=== PATIENT | female | born 1990 | race Caucasian/White ===

== ENCOUNTER 2017-03-19 21:19 | Emergency (ER) | payer OTHER ==
[2017-03-19 21:20] VITALS: BMI 28.1
[2017-03-19 21:49] VITALS: BP 114/72; PULSE 75; RESP 20; TEMP 98; O2SAT 95
[2017-03-19] MEDS ORDERED: guaiFENesin 200 mg/10 ml Syrup UD PO ONE (22:58)
[2017-03-19] MEDS ORDERED: Albuterol-Ipratrop 3 mg / 0.5 (3 ml) UD IH STA (22:58)
--- NOTE | 2017-03-19 23:10 | ED PDOC ---
Arrival/HPI - General Chief Complaint: Cough, Cold, Congestion Time Seen by Provider: 03/19/17 22:39 Historian: Patient - History of Present Illness Narrative History of Present Illness (Text): 03/19/17 23:00 Ximena Birmingham is a 27 year old female who presents to the emergency department for evaluation of 1 week duration of non-productive cough. Denies any fever, chills , chest pain, shortness of breath, abdominal pain, nausea, vomiting, diarrhea, urinary symptoms, or any other complaints at this time. Time/Duration: 1 week Symptom Onset: Gradual Symptom Course: Unchanged Severity Level: Mild Past Medical History - Provider Review Nursing Documentation Reviewed: Yes - Past History Past History: No Previous - Infectious Disease Hx of Infectious Diseases: None - Past Medical History Past Medical History: No Previous - Psychiatric Hx Anxiety: Yes Hx Depression: No Hx Emotional Abuse: No Hx Physical Abuse: No Hx Substance Use: No - Surgical History Hx Orthopedic Surgery: Yes (R HIP) - Anesthesia Hx Anesthesia: Yes Hx Anesthesia Reactions: No Hx Malignant Hyperthermia: No - Suicidal Assessment Feels Threatened In Home Enviroment: No Family/Social History - Physician Review Nursing Documentation Reviewed: Yes Family/Social History: No Known Family HX Smoking Status: Heavy Smoker > 10 Cigarettes Daily Hx Alcohol Use: Yes Frequency of alcohol use: Socially Hx Substance Use: No Allergies/Home Meds Allergies/Adverse Reactions: Allergies No Known Allergies Allergy (Verified 12/24/13 11:56) Home Medications: Home Meds Medication Instructions Recorded Confirmed Promethazine [Phenergan Syrup] 1 tsp PO QID 03/19/17 03/19/17 Review of Systems - Physician Review All systems were reviewed & negative as marked: Yes - Review of Systems Constitutional: Normal. absent: Fatigue, Fevers Respiratory: Cough. absent: SOB, Sputum Cardiovascular: Normal. absent: Chest Pain, Palpitations Gastrointestinal: Normal. absent: Abdominal Pain, Diarrhea, Nausea, Vomiting Neurological: Normal. absent: Headache, Dizziness Physical Exam Vital Signs Reviewed: Yes Vital Signs Temp Pulse Resp BP Pulse Ox 03/19/17 21:48 98.0 F 75 20 114/72 95 Temperature: Afebrile Blood Pressure: Normal Pulse: Regular Respiratory Rate: Normal Appearance: Positive for: Well-Appearing, Non-Toxic, Comfortable Pain Distress: None Mental Status: Positive for: Alert and Oriented X 3 - Systems Exam Head: Present: Atraumatic, Normocephalic Pupils: Present: PERRL Extroacular Muscles: Present: EOMI Conjunctiva: Present: Normal Mouth: Present: Moist Mucous Membranes Neck: Present: Normal Range of Motion Respiratory/Chest: Present: Clear to Auscultation, Good Air Exchange. No: Respiratory Distress, Accessory Muscle Use Cardiovascular: Present: Regular Rate and Rhythm, Normal S1, S2. No: Murmurs Abdomen: Present: Normal Bowel Sounds. No: Tenderness, Distention, Peritoneal Signs Back: Present: Normal Inspection Upper Extremity: Present: Normal Inspection. No: Cyanosis, Edema Lower Extremity: Present: Normal Inspection. No: Edema Neurological: Present: GCS=15, CN II-XII Intact, Speech Normal Skin: Present: Warm, Dry, Normal Color. No: Rashes Psychiatric: Present: Alert, Oriented x 3, Normal Insight, Normal Concentration Medical Decision Making ED Course and Treatment: 03/19/17 23:00 Impression: A 27 year old female who presents to the emergency department complaining of 1 week duration of nonproductive cough. Differential diagnosis : bronchitis, consider URI and pneumonia Plan: -- Robitussin -- Duoneb -- Reassess and disposition Progress Notes: On reevaluation patient reports significant improvement of her cough at this time. On exam she is sitting comfortably in bed in no acute distress, speaking in full sentences and in no respiratory distress. Patient advised of likely diagnosis of bronchitis and given a prescription for guaifenesin, Ventolin pump and albuterol nebulizer and advised to take medications as prescribed for her cough. Otherwise advised to follow up with her PMD in 1-2 days without fail. Advised to take medication as prescribed. Return to the emergency room at any time for any new or worsening symptoms. Patient states she fully agrees with and understands discharge instructions. States that she agrees with the plan and disposition. Verbalized and repeated discharge instructions and plan. I have given the patient opportunity to ask any additional questions. - Medication Orders Current Medication Orders: Discontinued Medications Albuterol/Ipratropium (Duoneb 3 Mg/0.5 Mg (3 Ml) Ud) 3 ml IH STAT STA Stop: 03/19/17 22:59 Last Admin: 03/19/17 23:51 Dose: 3 ml Guaifenesin (Robitussin) 400 mg PO ONCE ONE Stop: 03/19/17 22:59 Last Admin: 03/19/17 23:49 Dose: 400 mg Disposition/Present on Arrival - Present on Arrival Any Indicators Present on Arrival: No History of DVT/PE: No History of Uncontrolled Diabetes: No Urinary Catheter: No History of Decub. Ulcer: No History Surgical Site Infection Following: None - Disposition Have Diagnosis and Disposition been Completed?: Yes Diagnosis: Bronchitis Disposition: HOME/ ROUTINE Disposition Time: 23:30 Patient Plan: Discharge Condition: STABLE Discharge Instructions (ExitCare): Acute Bronchitis (ED) Print Language: [id number] Additional Instructions: Thank you for letting us take care of you today. You were treated for bronchitis. The emergency medical care you received today was directed at your acute symptoms. If you were prescribed any medication, please fill it and take as directed. It may take several days for your symptoms to resolve. Return to the Emergency Department if your symptoms worsen, do not improve, or if you have any other problems. Please contact your doctor in 2 days for re-evaluation and follow up. Bring any paperwork you were given at discharge with you along with any medications you are taking to your follow up visit. Our treatment cannot replace ongoing medical care by a primary care provider (PCP) outside of the emergency department. Thank you for allowing the [facility] team to be part of your care today. Prescriptions: Albuterol HFA [Ventolin HFA 90 mcg/actuation (8 g)] 2 puff IH [id number] #1 puff Albuterol 0.083% [Albuterol Sulfate 3 Ml] 3 ml IH Q4 #100 neb Guaifenesin 400 mg PO QID #20 tablet Nebulizer [Aeroneb Go Nebulizer] 1 each MC PRN PRN #1 each PRN Reason: Cough Forms: [employer] (Fijian), WORK NOTE
== END 2017-03-20 | disposition home or self-care (01) ==
LOC: ED 21:19
DX: J20.9 Acute bronchitis, unspecified (principal); F17.210 Nicotine dependence, cigarettes, uncomplicated

== ENCOUNTER 2017-03-23 02:26 | Emergency (ER) | payer OTHER ==
[2017-03-23 02:58] VITALS: BMI 29.0
[2017-03-23 03:02] VITALS: TEMP 98.5
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
[2017-03-23 05:35] VITALS: BP 100/66; PULSE 75; RESP 18; O2SAT 99
== END 2017-03-23 05:05 | disposition home or self-care (01) ==
LOC: ED 02:26
DX: S16.1XXA Strain of muscle, fascia and tendon at neck level, initial encounter (principal); V49.9XXA Car occupant (driver) (passenger) injured in unspecified traffic accident, initial encounter
CPT/HCPCS: 96372; 99285; J1885

== ENCOUNTER 2018-01-11 06:57 | Emergency (ER) | payer OTHER ==
[2018-01-11 06:57] VITALS: BMI 29.0
[2018-01-11 07:20] VITALS: RESP 18; O2SAT 100
[2018-01-11] MEDS ORDERED: Apap-Butalbital-Caffeine 325-50-40mg Tab PO ONE (08:00)
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
[2018-01-11 08:18] LABS: URINE BILIRUBIN NEGATIVE (NEGATIVE); URINE BLOOD TRACE-INTACT (NEGATIVE); URINE GLUCOSE (UA) NEGATIVE (NEGATIVE); URINE LEUKOCYTE ESTERASE TRACE Leu/uL (NEGATIVE); URINE PROTEIN TRACE mg/dL (<30 mg/dL); URINE UROBILINOGEN 0.2 E.U./dL (<1 E.U./dL)
[2018-01-11 08:22] LABS: URINE APPEARANCE SL CLOUDY (CLEAR); URINE COLOR LIGHT YELLOW (YELLOW)
[2018-01-11 08:31] LABS: URINE BACTERIA FEW (NEG); URINE RBC 0 - 2 /hpf (0-2)
[2018-01-11 09:48] VITALS: BP 123/78; PULSE 72; TEMP 98.4
== END 2018-01-11 09:32 | disposition home or self-care (01) ==
LOC: ED 06:57
DX: R51 Headache (principal); R45.89 Other symptoms and signs involving emotional state

== ENCOUNTER 2018-02-03 04:17 | Emergency (ER) | payer OTHER ==
[2018-02-03 04:29] VITALS: BMI 26.9
--- NOTE | 2018-02-03 04:34 | ED PDOC ---
Arrival/HPI - General Time Seen by Provider: 02/03/18 04:22 Historian: Patient - History of Present Illness Narrative History of Present Illness (Text): 02/03/18 04:31 Ximena Birmingham is a 27 year old female, whose past medical history includes anxiety and PCOS, who presents to the Emergency department complaining of shortness of breath. Patient states she has been experiencing a migraine throughout the day and tonight while lying down at home she felt short of breath. Patient notes she has been anxious recently due to stress. Patient denies any fever, chills, chest pain, nausea, vomiting, diarrhea, urinary symptoms, back pain, neck pain, headache, dizziness, or any other complaints. Time/Duration: Other (tonight) Symptom Onset: Gradual Symptom Course: Unchanged Activities at Onset: Light Context: Home Past Medical History - Provider Review Nursing Documentation Reviewed: Yes - Past History Past History: No Previous - Infectious Disease Hx of Infectious Diseases: None - Past Medical History Past Medical History: No Previous - Cardiac Hx Cardiac Disorders: No - Pulmonary Hx Bronchitis: Yes - Neurological Hx Neurological Disorder: No - HEENT Hx HEENT Disorder: No - Renal Hx Renal Disorder: No - Endocrine/Metabolic Hx Endocrine Disorders: No - Hematological/Oncological Hx Blood Disorders: No - Integumentary Hx Dermatological Disorder: No - Musculoskeletal/Rheumatological Hx Musculoskeletal Disorders: No - Gastrointestinal Hx Gastrointestinal Disorders: No - Genitourinary/Gynecological Hx Genitourinary Disorders: No Other/Comment: Polycystic ovary disease - Psychiatric Hx Anxiety: Yes Hx Depression: No Hx Emotional Abuse: No Hx Physical Abuse: No Hx Substance Use: No - Surgical History Hx Orthopedic Surgery: Yes (R HIP) - Anesthesia Hx Anesthesia: Yes Hx Anesthesia Reactions: No Hx Malignant Hyperthermia: No - Suicidal Assessment Feels Threatened In Home Enviroment: No Family/Social History - Physician Review Nursing Documentation Reviewed: Yes Family/Social History: Unknown Family HX Smoking Status: Heavy Smoker > 10 Cigarettes Daily Hx Alcohol Use: Yes Hx Substance Use: No Allergies/Home Meds Allergies/Adverse Reactions: Allergies No Known Allergies Allergy (Verified 02/03/18 04:27) Home Medications: Home Meds Medication Instructions Recorded Confirmed No Known Home Med 02/03/18 02/03/18 Review of Systems - Physician Review All systems were reviewed & negative as marked: Yes - Review of Systems Constitutional: Normal. absent: Fevers Eyes: Normal ENT: Normal Respiratory: SOB Cardiovascular: Normal. absent: Chest Pain Gastrointestinal: Normal. absent: Abdominal Pain, Diarrhea, Nausea, Vomiting Genitourinary Female: Normal. absent: Dysuria, Frequency, Hematuria Musculoskeletal: Normal. absent: Back Pain, Neck Pain Skin: Normal. absent: Rash Neurological: Headache Endocrine: Normal Hemo/Lymphatic: Normal Psychiatric: Anxiety Physical Exam Vital Signs Reviewed: Yes Vital Signs Temp Pulse Resp Pulse Ox 02/03/18 04:29 97.6 F 61 19 100 Temperature: Afebrile Blood Pressure: Normal Pulse: Regular Respiratory Rate: Normal Appearance: Positive for: Well-Appearing, Non-Toxic, Comfortable Pain Distress: None Mental Status: Positive for: Alert and Oriented X 3 - Systems Exam Head: Present: Atraumatic, Normocephalic Pupils: Present: PERRL Extroacular Muscles: Present: EOMI Conjunctiva: Present: Normal Mouth: Present: Moist Mucous Membranes Neck: Present: Normal Range of Motion Respiratory/Chest: Present: Clear to Auscultation, Good Air Exchange. No: Respiratory Distress, Accessory Muscle Use Cardiovascular: Present: Regular Rate and Rhythm, Normal S1, S2. No: Murmurs Abdomen: No: Tenderness, Distention, Peritoneal Signs Back: Present: Normal Inspection Upper Extremity: Present: Normal Inspection. No: Cyanosis, Edema Lower Extremity: Present: Normal Inspection. No: Edema Neurological: Present: GCS=15, CN II-XII Intact, Speech Normal Skin: Present: Warm, Dry, Normal Color. No: Rashes Psychiatric: Present: Alert, Oriented x 3, Normal Insight, Normal Concentration , Anxious (anxious-appearing) Medical Decision Making ED Course and Treatment: 02/03/18 04:31 Impression: 27 year old female complaining of shortness of breath, headache, and anxiety. Plan: -- EKG -- Chest X-ray -- Labs -- Xanax -- Reassess and disposition Prior Visits: Notes and results from previous visits were reviewed. On 01/11/2018, pt was seen in the Emergency department for light-headedness, headache, and anxiety. Pt was d/c home. Progress Notes: Reviewed EKG, sinus bradycardia at 58 bpm. Sinus arrhythmia. No acute changes. 02/03/18 05:59 Chest X-ray reviewed, shows no acute processes. 02/03/18 07:11 Case endorsed to pending D-Dimer/reassess/final disposition - Lab Interpretations Lab Results: 02/03/18 06:00 02/03/18 06:00 Lab Results 02/03/18 06:00: WBC 10.4, RBC 4.11, Hgb 11.8 L, Hct 35.4 L, MCV 86.1, MCH 28.7, MCHC 33.3, RDW 13.9, Plt Count 294, MPV 8.7 02/03/18 06:00: Sodium 142, Potassium 3.7, Chloride 103, Carbon Dioxide 27, Anion Gap 15, BUN 13, Creatinine 0.8, Est GFR ( Amer) > 60, Est GFR (Non- Af Amer) > 60, Random Glucose 114 H, Calcium 8.6, Total Bilirubin 0.2, AST 31, ALT 26, Alkaline Phosphatase 92, Lactate Dehydrogenase 411, Total Creatine Kinase 46, Troponin I < 0.01, Total Protein 7.6, Albumin 4.1, Globulin 3.4, Albumin/Globulin Ratio 1.2 - RAD Interpretation Radiology Orders: 02/03/18 04:31 CHEST PORTABLE [RAD] Stat Rock Dust Sprayer: ED Physician - EKG Interpretation Interpreted by ED Physician: Yes Type: 12 lead EKG - Medication Orders Current Medication Orders: Discontinued Medications Alprazolam (Xanax) 0.25 mg PO ONCE ONE Stop: 02/03/18 04:33 Last Admin: 02/03/18 04:52 Dose: 0.25 mg - Scribe Statement The provider has reviewed the documentation as recorded by the Taylor Velazquez Provider Scribe Attestation: All medical record entries made by the Taylor were at my direction and personally dictated by me. I have reviewed the chart and agree that the record accurately reflects my personal performance of the history, physical exam, medical decision making, and the department course for this patient. I have also personally directed, reviewed, and agree with the discharge instructions and disposition. Disposition/Present on Arrival - Present on Arrival Any Indicators Present on Arrival: No History of DVT/PE: No History of Uncontrolled Diabetes: No Urinary Catheter: No History of Decub. Ulcer: No History Surgical Site Infection Following: None - Disposition Have Diagnosis and Disposition been Completed?: No Diagnosis: Anxiety Disposition Time: 07:09 Patient Problems: Current Active Problems Problem Status Onset Anxiety Acute Condition: STABLE Referrals: Warren Cason JD, MD [Primary Care Provider] - Follow up with primary
[2018-02-03 06:20] LABS: HEMOGLOBIN 11.8 g/dL (12.0-16.0); MEAN CELL VOLUME 86.1 fl (80.0-105.0); MEAN CORPUSCULAR HEMOGLOBIN 28.7 pg (25.0-35.0); MEAN CORPUSCULAR HGB CONC 33.3 g/dl (31.0-37.0); MEAN PLATELET VOLUME 8.7 fl (7.0-11.0); RBC 4.11 10^6/uL (3.5-6.1); RED CELL DISTRIBUTION WIDTH 13.9 % (11.5-14.5); WHITE BLOOD COUNT 10.4 10^3/ul (4.5-11.0)
[2018-02-03 06:24] LABS: ALB/GLOB RATIO 1.2 (1.1-1.8); ALBUMIN 4.1 g/dL (3.0-4.8); ALT/SGPT 26 U/L (7-56); AST/SGOT 31 U/L (14-36); BLOOD UREA NITROGEN 13 mg/dL (7-21); CALCIUM 8.6 mg/dL (8.4-10.5); GFR AFRICAN-AMERICAN > 60; GFR NON-AFRICAN AMERICAN > 60
[2018-02-03 06:35] LABS: TROPONIN I < 0.01 ng/mL
[2018-02-03 07:31] VITALS: BP 94/57; TEMP 97.7; O2SAT 95
--- NOTE | 2018-02-03 07:35 | ED PDOC ---
Physical Exam Vital Signs Temp Pulse Resp BP Pulse Ox 02/03/18 07:31 97.7 F 53 L 19 94/57 L 95 02/03/18 04:29 97.6 F 61 19 100 02/03/18 04:18 18 Medical Decision Making ED Course and Treatment: 02/03/18 07:32 Patient signed out to me by Dr. Dupont, pending follow up D-Dimer results for disposition. 02/03/18 07:55 Patient is feeling much better. Headache improved. No longer having shortness of breathe. Lungs clear. She will f/u with her PMD in 1-2 days. Advised to return to the ED if symptoms worsen or any other concern - Lab Interpretations Lab Results: 02/03/18 06:00 02/03/18 06:00 Lab Results 02/03/18 07:00: D-Dimer, Quantitative < 200 02/03/18 06:00: WBC 10.4, RBC 4.11, Hgb 11.8 L, Hct 35.4 L, MCV 86.1, MCH 28.7, MCHC 33.3, RDW 13.9, Plt Count 294, MPV 8.7 02/03/18 06:00: Sodium 142, Potassium 3.7, Chloride 103, Carbon Dioxide 27, Anion Gap 15, BUN 13, Creatinine 0.8, Est GFR ( Amer) > 60, Est GFR (Non- Af Amer) > 60, Random Glucose 114 H, Calcium 8.6, Total Bilirubin 0.2, AST 31, ALT 26, Alkaline Phosphatase 92, Lactate Dehydrogenase 411, Total Creatine Kinase 46, Troponin I < 0.01, Total Protein 7.6, Albumin 4.1, Globulin 3.4, Albumin/Globulin Ratio 1.2 - RAD Interpretation Radiology Orders: 02/03/18 04:31 CHEST PORTABLE [RAD] Stat - Medication Orders Current Medication Orders: Discontinued Medications Alprazolam (Xanax) 0.25 mg PO ONCE ONE Stop: 02/03/18 04:33 Last Admin: 02/03/18 04:52 Dose: 0.25 mg Ketorolac Tromethamine (Toradol) 30 mg IVP STAT STA Stop: 02/03/18 07:34 - Scribe Statement The provider has reviewed the documentation as recorded by the [employer] All medical record entries made by the Scribe were at my direction and personally dictated by me. I have reviewed the chart and agree that the record accurately reflects my personal performance of the history, physical exam, medical decision making, and the department course for this patient. I have also personally directed, reviewed, and agree with the discharge instructions and disposition. ' Disposition/Present on Arrival - Present on Arrival Any Indicators Present on Arrival: No History of DVT/PE: No History of Uncontrolled Diabetes: No Urinary Catheter: No History of Decub. Ulcer: No History Surgical Site Infection Following: None - Disposition Have Diagnosis and Disposition been Completed?: Yes Diagnosis: Anxiety, Headache Disposition: HOME/ ROUTINE Disposition Time: 07:55 Patient Plan: Discharge Condition: STABLE Discharge Instructions (ExitCare): Migraine Headache (DC), Anxiety, Adult (DC) Additional Instructions: MILAGROS MORRIS, thank you for letting us take care of you today. Your provider was Son Lna DO and you were treated for Shortness of Breathe, Headache. The emergency medical care you received today was directed at your acute symptoms. If you were prescribed any medication, please fill it and take as directed. It may take several days for your symptoms to resolve. Return to the Emergency Department if your symptoms worsen, do not improve, or if you have any other problems. Please contact your doctor or call one of the physicians/clinics you have been referred to that are listed on the Patient Visit Information form that is included in your discharge packet. Bring any paperwork you were given at discharge with you along with any medications you are taking to your follow up visit. Our treatment cannot replace ongoing medical care by a primary care provider outside of the emergency department. Thank you for allowing the [facility] team to be part of your care today. If you had an X-Ray or CT scan: A Radiologist will review the ED reading if any change in treatment is needed we will contact you. If you had a blood, urine, or wound culture: It will take several days for the results, if any change in treatment is needed we will contact you. If you had an STI test: It will take 48 hours for the results. Please call after 1 week if you have not heard back. Referrals: Warren Cason JD, MD [Primary Care Provider] - Follow up with primary Forms: WORK NOTE
[2018-02-03 07:56] VITALS: PULSE 54; RESP 17
--- NOTE | 2018-02-03 09:23 | RAD ---
HISTORY: sob COMPARISON: No prior. FINDINGS: LUNGS: No active pulmonary disease. PLEURA: No significant pleural effusion identified, no pneumothorax apparent. CARDIOVASCULAR: Normal. OSSEOUS STRUCTURES: No significant abnormalities. VISUALIZED UPPER ABDOMEN: Normal. OTHER FINDINGS: None. IMPRESSION: No active disease.
--- NOTE | 2018-02-03 17:14 | CARD ---
APPROVED REPORT EKG Measurement Heart [id number] <Conclusion> Sinus bradycardia with sinus arrhythmia Otherwise normal ECG
== END 2018-02-03 07:55 | disposition home or self-care (01) ==
LOC: ED 04:17
DX: F41.9 Anxiety disorder, unspecified (principal); R51 Headache
CPT/HCPCS: 71045; 80053; 82550; 83615; 84484; 85027; 85378; 93005; 96374; 99283; J1885

== ENCOUNTER 2018-05-04 04:42 | Emergency (ER) | payer MEDICAID, OTHER ==
[2018-05-04 05:15] VITALS: BMI 26.6
[2018-05-04 05:19] VITALS: TEMP 98.1
[2018-05-04] MEDS ORDERED: Amoxicillin-Clav 875-125 mg Tab PO STA (05:38)
--- NOTE | 2018-05-04 05:40 | ED PDOC ---
Arrival/HPI <Saad Ramírez - Last Filed: 05/04/18 06:00> - General Historian: Patient - History of Present Illness Time/Duration: 24 hours Symptom Onset: Gradual Symptom Course: Unchanged Quality: Burning Severity Level: 5 Activities at Onset: Rest Context: Home <Elvin Ramos - Last Filed: 05/04/18 06:44> - General Chief Complaint: Abnormal Skin Integrity Time Seen by Provider: 05/04/18 05:17 - History of Present Illness Narrative History of Present Illness (Text): 05/04/18 05:36 CC: Stray cat bite HPI: Ms. Morris is a 28 year old female heavy smoker who presents with a bite from a stray cat patient picked up from the street. Patient reports she was giving the cat a bath at 7 pm when patient was bit in left interdigital fold between first and second digits last night. Skin has become slightly red and swollen, and patient reports occasional feelings of full-body warmth since then. Reports new headache but Denies fevers chills, chest pain, shortness of breath, abdominal pain. (Elvin Ramos) Past Medical History - Provider Review Nursing Documentation Reviewed: Yes - Travel History Have you recently traveled outside [place] w/in the past 3 mons?: No - Past History Past History: No Previous - Infectious Disease Hx of Infectious Diseases: None - Past Medical History Past Medical History: No Previous - Cardiac Hx Cardiac Disorders: No - Pulmonary Hx Bronchitis: Yes - Neurological Hx Neurological Disorder: No - HEENT Hx HEENT Disorder: No - Renal Hx Renal Disorder: No - Endocrine/Metabolic Hx Endocrine Disorders: No - Hematological/Oncological Hx Blood Disorders: No - Integumentary Hx Dermatological Disorder: No - Musculoskeletal/Rheumatological Hx Musculoskeletal Disorders: No - Gastrointestinal Hx Gastrointestinal Disorders: No - Genitourinary/Gynecological Hx Genitourinary Disorders: No Other/Comment: Polycystic ovary disease - Psychiatric Hx Anxiety: Yes Hx Depression: No Hx Emotional Abuse: No Hx Physical Abuse: No Hx Substance Use: No - Surgical History Hx Orthopedic Surgery: Yes (R HIP) - Anesthesia Hx Anesthesia: Yes Hx Anesthesia Reactions: No Hx Malignant Hyperthermia: No - Suicidal Assessment Feels Threatened In Home Enviroment: No <Elvin Ramos - Last Filed: 05/04/18 06:44> Family/Social History - Physician Review Nursing Documentation Reviewed: Yes Family/Social History: Unknown Family HX Smoking Status: Heavy Smoker > 10 Cigarettes Daily Hx Alcohol Use: Yes Hx Substance Use: No <Elvin Ramos - Last Filed: 05/04/18 06:44> Allergies/Home Meds <Saad Ramírez - Last Filed: 05/04/18 06:00> <Elvin Ramos - Last Filed: 05/04/18 06:44> Allergies/Adverse Reactions: Allergies No Known Allergies Allergy (Verified 02/03/18 04:27) Review of Systems - Review of Systems Constitutional: Normal Eyes: Normal ENT: Normal Respiratory: Normal. absent: SOB Cardiovascular: Normal. absent: Chest Pain Gastrointestinal: Normal. absent: Abdominal Pain Musculoskeletal: Normal. absent: Arthralgias Skin: Pruritis, Skin Lesions (L interdigital with mild surrounding warmth and erythema). absent: Rash Neurological: Headache <Elvin Ramos - Last Filed: 05/04/18 06:44> Physical Exam Vital Signs Reviewed: Yes Temperature: Afebrile Blood Pressure: Normal Pulse: Regular Respiratory Rate: Normal Appearance: Positive for: Well-Appearing, Non-Toxic, Comfortable Pain Distress: Mild Mental Status: Positive for: Alert and Oriented X 3 - Systems Exam Head: Present: Atraumatic, Normocephalic Pupils: Present: PERRL Extroacular Muscles: Present: EOMI Neck: Present: Normal Range of Motion Respiratory/Chest: Present: Clear to Auscultation, Good Air Exchange. No: Respiratory Distress, Accessory Muscle Use Cardiovascular: Present: Regular Rate and Rhythm, Normal S1, S2, Peripheal Pulses Present. No: Murmurs Abdomen: Present: Normal Bowel Sounds. No: Tenderness, Distention Upper Extremity: Present: Normal Inspection, Edema (mild of left hand bat space between 1st and 2nd fingers), NORMAL PULSES, Swelling (L hand. Single tiny puncture roderick with dried blood superficially). No: Cyanosis Lower Extremity: Present: Normal Inspection Neurological: Present: GCS=15, CN II-XII Intact, Speech Normal Skin: Present: Warm, Dry, Normal Color Psychiatric: Present: Alert, Oriented x 3, Normal Insight, Normal Concentration <Elvin figueroa - Last Filed: 05/04/18 06:44> Vital Signs Temp Pulse Resp BP Pulse Ox 05/04/18 05:17 98.1 F 70 16 103/62 96 Medical Decision Making <Saad Ramírez - Last Filed: 05/04/18 06:00> <Elvin Ramos - Last Filed: 05/04/18 06:44> ED Course and Treatment: 05/04/18 06:00 A 28 year old female who presents to the emergency department for further evaluation of a cat bite. In agreement with resident note, which includes further HPI details. Patient was seen and evaluated with resident, came up with plan and treatment together. (Saad Ramírez) 05/04/18 05:49 Impression: 28 year old female heavy smoker who got bitten by stray cat. No fever. Plan: Tetanus shot POC preg test Augmentin 875 mg 05/04/18 06:29 Patient reports feeling better. Received one dose of Augmentin and TDAP shot. Will give prescription for Augmentin for 10 days 875-125 mg BID. Cautioned patient to be cognizant of any neurologic sequalae, fevers, chills, or any burning or numbness in the hand. Patient prepared for discharge. 05/04/18 06:43 (Elvin Ramos) - Medication Orders Current Medication Orders: Discontinued Medications Amoxicillin/Clavulanate Potassium (Augmentin 875 Mg-125 Mg Tab) 1 tab PO STAT STA PRN Reason: Protocol Stop: 05/04/18 05:39 Last Admin: 05/04/18 06:00 Dose: 1 tab Tetanus/Reduced Diphtheria/Acell Pertussis (Boostrix Vaccine Inj) 0.5 ml IM .ONCE ONE Stop: 05/04/18 06:07 Last Admin: 05/04/18 06:15 Dose: 0.5 ml - Scribe Statement The provider has reviewed the documentation as recorded by the Scribe <Saad Ramírez - Last Filed: 05/04/18 06:00> <Elvin Ramos - Last Filed: 05/04/18 06:44> - Scribe Statement Jillian Borja Provider Scribe Attestation: All medical record entries made by the Scribe were at my direction and personally dictated by me. I have reviewed the chart and agree that the record accurately reflects my personal performance of the history, physical exam, medical decision making, and the department course for this patient. I have also personally directed, reviewed, and agree with the discharge instructions and disposition. (Saad Ramírez) Disposition/Present on Arrival <DesireeSaad - Last Filed: 05/04/18 06:00> - Present on Arrival Any Indicators Present on Arrival: No History of DVT/PE: No History of Uncontrolled Diabetes: No Urinary Catheter: No History of Decub. Ulcer: No History Surgical Site Infection Following: None - Disposition Have Diagnosis and Disposition been Completed?: Yes Disposition Time: 06:33 Patient Plan: Discharge <Elvin Ramos - Last Filed: 05/04/18 06:44> - Disposition Diagnosis: Cat bite of hand Disposition: HOME/ ROUTINE Patient Problems: Current Active Problems Problem Status Onset Cat bite of hand Acute Condition: IMPROVED Discharge Instructions (ExitCare): Animal Bites (DC) Print Language: SENEGALESE Additional Instructions: Please take the antibiotic Augmentin as prescribed. Please be on the lookout for any localized swelling and redness, as well as fevers, chills, or neurological issues that may arise from the bite. Please follow up with your primary care doctor within a week to have your bite evaluated. Should symptoms worsen, please return to nearest emergency department. MILAGROS MORRIS, thank you for letting us take care of you today. Your provider was Saad Ramírez MD and you were treated for CAT BITE. The emergency medical care you received today was directed at your acute symptoms. If you were prescribed any medication, please fill it and take as directed. It may take several days for your symptoms to resolve. Return to the Emergency Department if your symptoms worsen, do not improve, or if you have any other problems. Please contact your doctor or call one of the physicians/clinics you have been referred to that are listed on the Patient Visit Information form that is included in your discharge packet. Bring any paperwork you were given at discharge with you along with any medications you are taking to your follow up visit. Our treatment cannot replace ongoing medical care by a primary care provider outside of the emergency department. Thank you for allowing the [facility] team to be part of your care today. If you had an X-Ray or CT scan: A Radiologist will review the ED reading if any change in treatment is needed we will contact you. If you had a blood, urine, or wound culture: It will take several days for the results, if any change in treatment is needed we will contact you. If you had an STI test: It will take 48 hours for the results. Please call after 1 week if you have not heard back. Referrals: Warren Cason JD, MD [Primary Care Provider] - Follow up with primary Forms: [employer] (Lithuanian)
[2018-05-04] MEDS ORDERED: TDAP Vaccine 0.5 mL Syr IM ONE (06:06)
[2018-05-04 06:58] VITALS: BP 108/79; PULSE 75; RESP 18; O2SAT 100
== END 2018-05-04 06:45 | disposition home or self-care (01) ==
LOC: ED 04:42
DX: S61.452A Open bite of left hand, initial encounter (principal); W55.01XA Bitten by cat, initial encounter; Y93.K3 Activity, grooming and shearing an animal; Y92.89 Other specified places as the place of occurrence of the external cause; Z23 Encounter for immunization